=== PATIENT | male | born 1955 | race Caucasian/White ===

== ENCOUNTER 2018-02-19 22:46 | Emergency (ER) | payer BC ==
[2018-02-19] MEDS ORDERED: DIAZEPAM (VALIUM) 5MG/ML **10ML VIAL IM ONE (23:13)
[2018-02-19] MEDS ORDERED: KETOROLAC 30 MG/ML VIAL IM ONE (23:13)
--- NOTE | 2018-02-19 23:20 | Emergency Department Record ---
History of Present Illness - General Chief complaint: Pain Stated complaint: RT SHOULDER /ARM PAIN Time Seen by Provider: 02/19/18 23:07 Source: Patient Mode of Arrival: Ambulatory Limitations: No limitations - History of Present Illness Initial comments: 62 yo male presents to ED for evaluation of pain to the right shoulder for the past 2 weeks. Patient reports injury while hanging a door at work 2 weeks ago, reports feeling a "pop" between the right shoulder and right elbow. Patient reports pain with movement of the shoulder and right elbow. Patient denies numbness or tingling symptoms, denies weakness distally. 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 Patient has been taking left over [place] from his CTS surgery for his pain symptoms however this has not been helping. MD Complaint: Joint pain Onset/Timin -: Week(s) Location: Right, Arm, Shoulder History of Same: No Radiation: Distal Severity scale (1-10): 8 Quality: Aching Consistency: Constant Improves with: Nothing Worsens with: Palpation - Related Data Home Medications Medication Instructions Recorded Confirmed Last Taken Atorvastatin Calcium 20 mg PO QHS 02/19/18 02/19/18 Unknown Carvedilol 1 tab PO BID 02/19/18 02/19/18 Unknown Lisinopril 40 mg PO DAILY 02/19/18 02/19/18 Unknown Previous Rx's Medication Instructions Recorded Ibuprofen [Motrin] 800 mg PO Q6H PRN #30 tab 02/19/18 Allergies Allergy/AdvReac Type Severity Reaction Status Date / Time No Known Drug Allergies Allergy Verified 02/19/18 23:02 Travel Screening - Travel/Exposure Within Last 30 Days Have you traveled within the last 30 days?: No - Travel/Exposure Within Last Year Have you traveled outside the [place] in the last year?: No - Additonal Travel Details Have you been exposed to anyone with a communicable illness?: No - Travel Symptoms Symptom Screening: None Review of Systems Constitutional: Denies: Chills, Fever, Malaise, Night sweats Eyes: Denies: Eye discharge, Eye pain ENT: Denies: Congestion, Ear pain, Epistaxis Respiratory: Denies: Cough, Dyspnea Cardiovascular: Denies: Chest pain, Dyspnea on exertion Endocrine: Denies: Fatigue, Heat or cold intolerance Gastrointestinal: Denies: Abdominal pain, Nausea, Vomiting Genitourinary: Denies: Incontinence, Retention Musculoskeletal: Reports: Arthralgia. Denies: Back pain, Gout, Joint swelling Skin: Denies: Bruising, Change in color Neurological: Denies: Abnormal gait, Confusion, Headache, Tingling Psychiatric: Denies: Anxiety Hematological/Lymphatic: Denies: Anemia, Blood Clots Past Medical History - SOCIAL HISTORY Smoking Status: Never smoker Alcohol Use: Occasional Drug Use: Occasional Drug Use Detail:: Marijuana - RESPIRATORY Hx Respiratory Disorders: No - CARDIOVASCULAR Hx Cardio Disorders: Yes Hx Heart Attack: Yes Hx Vascular Disease: Yes - NEURO Hx Neuro Disorders: Yes Comment:: neck sx for pinched neck nerves - GI Hx GI Disorders: No - Hx Genitourinary Disorders: Yes Hx Bladder Problem: Yes (gets up 4 x at night) Comment:: hematuria - ENDOCRINE Hx Endocrine Disorders: No - MUSCULOSKELETAL Hx Musculoskeletal Disorders: Yes Comment:: neck - PSYCH Hx Psych Problems: No - HEMATOLOGY/ONCOLOGY Hx Hematology/Oncology Disorders: No Family Medical History Any Significant Family History?: No Physical Exam - General General Appearance: Alert, Oriented x3, Cooperative, Moderate distress (due to patient's pain symptoms) Limitations: No limitations - Head Head exam: Atraumatic, Normocephalic, Normal inspection Head exam detail: negative: Abrasion, Contusion, Carter's sign, General tenderness, Hematoma, Laceration - Eye Eye exam: Normal appearance. negative: Conjunctival injection, Periorbital swelling, Periorbital tenderness, Scleral icterus - ENT Ear exam: negative: Auricular hematoma, Auricular trauma Nasal Exam: negative: Active bleeding, Discharge, Dried blood, Foreign body Mouth exam: negative: Drooling, Laceration, Muffled voice, Tongue elevation - Neck Neck exam: Normal inspection. negative: Meningismus, Tenderness - Respiratory Respiratory exam: Normal lung sounds bilaterally. negative: Respiratory distress, Rhonchi, Stridor, Wheezes - Cardiovascular Cardiovascular Exam: Regular rate, Normal rhythm, Normal heart sounds Peripheral Pulses: 3+: Radial (R) - GI/Abdominal GI/Abdominal exam: Soft. negative: Rebound, Rigid, Tenderness - Rectal Rectal exam: Deferred - exam: Deferred - Extremities Extremities exam: Tenderness, Other (Pain with AROM on examination, pain with palpation to the supraspinatus region, no evidence for biceps tendon tear, no pain with ROM of the elbow. Compartments of the upper arn and forearm are soft on examination, strong distal raidal pulse is present.). negative: Calf tenderness, Pedal edema - Back Back exam: Denies: CVA tenderness (R), CVA tenderness (L) - Neurological Neurological exam: Alert, Normal gait, Oriented X3 - Psychiatric Psychiatric exam: Normal affect, Normal mood - Skin Skin exam: Normal color. negative: Abrasion Type of lesion: negative: abrasion Course Vital Signs 02/19/18 22:52 Temperature 97.7 F Pulse Rate [ 96 H Pulse Ox Probe] Respiratory 20 Rate Blood Pressure 180/124 [Left Arm] Pulse Ox 98 - Reevaluation(s) Reevaluation #1: 02/19/18 23:29 EKG: NSR 92 Indeterminate axis, normal intervals Q waves III, AVF Unchanged from 10/05/11 Reevaluation #2: 02/19/18 23:48 Right Shoulder: Degenerative changes to the AC joint No acute process identified. Patient was reassessed, reports that his pain symptoms have worsened following Valium and Toradol. Dilaudid IM ordered. Will reassess. Reevaluation #3: 02/20/18 00:27 Patient was reassessed and report improvement in his pain symptoms. Patient appears more comfortable subjectively as well. Patient appears stable for discharge with instructions to call his orthopedist ( Breanne) tomorrow for further evaluation. Disposition Disposition: Discharge Clinical Impression: Shoulder pain, right Qualifiers: Chronicity: acute Qualified Code(s): M25.511 - Pain in right shoulder Disposition: Home, Self-Care Condition: (2) Stable Instructions: Shoulder Pain (ED) Additional Instructions: Return to ED if your symptoms worsen or if you have any concerns. Follow-up with Dr. Raymundo in 1-3 days as directed for further evaluation of your shoulder pain symptoms. Motrin 800 mg as directed. Prescriptions: Ibuprofen [Motrin] 800 mg PO Q6H PRN #30 tab PRN Reason: Pain - Mild To Moderate (1-7) Forms: Patient Portal Access Time of Disposition: 00:28 Quality - Quality Measures Quality Measures: N/A - Blood Pressure Screening Does Patient Have Any of the Following: Active Dx of HTN Blood Pressure Classification: Hypertensive Reading Systolic Measurement: 176 Diastolic Measurement: 129 Screening for High Blood Pressure: Patient Exclusion, Hx of HTN [[id number]]
[2018-02-19] MEDS ORDERED: HYDROMORPHONE HCL 2 MG/ML VIAL IM ONE (23:48)
--- NOTE | 2018-02-20 11:25 | RADIOLOGY REPORT ---
EXAM: RIGHT SHOULDER HISTORY: INJURED THE RIGHT SHOULDER TWO WEEKS AGO. POSTERIOR SHOULDER PAIN SINCE. INCREASING PAIN TODAY. TECHNIQUE: Three views of the right shoulder were obtained. Comparison: None. FINDINGS: There are moderate hypertrophic degenerative changes of the acromioclavicular joint. Small marginal osteophytes are also present at the glenohumeral joint. There is no acute fracture, dislocation, or destructive process. IMPRESSION: 1. ARTHRITIC CHANGES ABOVE. 2. NO ACUTE RIGHT SHOULDER PATHOLOGY. JOB [facility]BER: [id number] [facility]
== END 2018-02-20 00:32 | disposition home or self-care (01) ==
LOC: ER 22:46
DX: M25.511 Pain in right shoulder (principal); M25.521 Pain in right elbow; I10 Essential (primary) hypertension; I25.2 Old myocardial infarction
CPT/HCPCS: 93005; 93010; 96372; 99284; J1885; J3360